=== PATIENT | male | born 1940 | race Caucasian/White ===

== ENCOUNTER → 2021-10-12 | Day surgery (SDC) | payer MEDICARE ==
[~2021-10-12] VITALS: Ht 182.9 cm; Wt 98.2 kg
[~2021-10-12] MED LIST: ALDACTONE25 MG PO; ALL DAY ALLERGY10 M3 PO; ASPIRIN CHEWABL81 MG PO; BUSPIRONE HCL7.5 MG PO; CHLORTHALIDONE25 MG PO; CLARITIN10 MG PO; ESCITALOPRAM OX10 MG PO; FLONASE ALLER15.8 ML; LIPITOR20 MG PO; LIPITOR40 MG PO; NITROQUIK SL0.4 MG SL; NORCO 5-325 TA1 EACH PO; PAXIL20 M1 PO; PEPCID AC20 MG PO; PERCOCET 5/3251 TAB PO; PLAVIX75 MG PO; PRINIVIL20 MG PO; STIOLTO RESPIMAT INH
== END | disposition home or self-care (01) ==
LOC: FAS 09-14 07:30
DX: D12.4 Benign neoplasm of descending colon (principal); D12.5 Benign neoplasm of sigmoid colon; K57.30 Diverticulosis of large intestine without perforation or abscess without bleeding; K64.8 Other hemorrhoids; J44.9 Chronic obstructive pulmonary disease, unspecified; I25.10 Atherosclerotic heart disease of native coronary artery without angina pectoris; E78.5 Hyperlipidemia, unspecified; K21.9 Gastro-esophageal reflux disease without esophagitis; Z87.891 Personal history of nicotine dependence; Z88.0 Allergy status to penicillin; Z79.02 Long term (current) use of antithrombotics/antiplatelets; Z79.82 Long term (current) use of aspirin; Z79.899 Other long term (current) drug therapy
CPT/HCPCS: J2704; J7120